=== PATIENT | male | born 1945 | race Caucasian/White ===

== ENCOUNTER 2019-11-20 06:33 | Outpatient (CLI) | payer MEDICARE, BC ==
[2019-11-20 13:32] LABS: INR-International Normal Ratio 1.1; PTT 39.8 SEC (22.9-36.1); Prothrombin Time 14.4 SEC (12.0-14.7)
[2019-11-20 13:33] LABS: Bacteria/HPF Rare-Few HPF (None Seen); Bilirubin Negative (Negative); Blood, Urine Negative (Negative); Clarity Clear (Clear); Glucose, Urine (Dipstick) Normal (Negative); Leukocyte Negative Leu/uL (Negative); Nitrite Negative (Negative); Protein, Urine (Dipstick) Negative (Neg-Trace); RBC/HPF 0-3 HPF (0-3); Squamous Epithelial 0-3 HPF (0-3); Urobilinogen Normal mg/dL (Less than 2); WBC/HPF 0-3 HPF (0-3)
== END 2019-11-20 06:34 | disposition home or self-care (01) ==
LOC: LABBT 06:33
PROVIDERS: ATTEND Urology
DX: Z01.818 Encounter for other preprocedural examination (principal); N52.31 Erectile dysfunction following radical prostatectomy
CPT/HCPCS: 36415; 80048; 81001; 85025; 85610; 85730; 87086; 93005; 93010

== ENCOUNTER 2019-11-29 07:32 | Day surgery (SDC) | payer MEDICARE, BC ==
[2019-11-29] MEDS ORDERED: Levofloxacin 500 mg/D5W 100 ml Premix Bag ONE (10:01)
[2019-11-29] MEDS ORDERED: Neomycin-Polymyxin 1 ML AMP ONE (10:47)
[2019-11-29] MEDS ORDERED: Bacitracin Zinc Ointment 30 gm TUBE ONE ×2 (10:47→10:48)
[2019-11-29] MEDS ORDERED: Fentanyl 100 MCG/2 ML VIAL ONE (10:49)
== END 2019-11-29 10:56 | disposition home or self-care (01) ==
LOC: SDC 07:32
PROVIDERS: ATTEND Urology
DX: N52.31 Erectile dysfunction following radical prostatectomy (principal); Z53.09 Procedure and treatment not carried out because of other contraindication; Z79.01 Long term (current) use of anticoagulants; Z79.1 Long term (current) use of non-steroidal anti-inflammatories (NSAID); Z79.82 Long term (current) use of aspirin; Z79.899 Other long term (current) drug therapy; Z88.0 Allergy status to penicillin
CPT/HCPCS: J1956; J3010

== ENCOUNTER 2020-06-27 07:42 | Outpatient (CLI) | payer MEDICARE, BC, OTHER ==
[2020-06-27 17:03] LABS: SARS-CoV-2 MS2 Positive; SARS-CoV-2 N Gene Negative; SARS-CoV-2 S Gene Negative; SARS-CoV-2 by NAA Not Detected (NotDetected); SARS-CoV-2 orf1ab Negative
== END 2020-06-27 07:43 | disposition home or self-care (01) ==
LOC: LABBT 07:42
PROVIDERS: ATTEND Internal Medicine Gastroenterology
DX: Z20.828 Contact with and (suspected) exposure to other viral communicable diseases (principal)
CPT/HCPCS: 87635; U0003

== ENCOUNTER 2020-07-02 07:56 | Day surgery (SDC) | payer MEDICARE, BC ==
[2020-06-27 13:35] VITALS: BMI 19.8
[2020-07-02] MEDS ORDERED: PROPOFOL 200 MG/20 ML VIAL ONE (10:13)
--- NOTE | 2020-07-02 11:56 | OP ---
DATE OF PROCEDURE: 07/02/2020 PROCEDURE PERFORMED: Colonoscopy. PREMEDICATION: Given by Anesthesiology Department. PREPROCEDURE DIAGNOSIS: History of colon polyps. POSTPROCEDURE DIAGNOSES: 1. Sigmoid diverticulosis coli. 2. Otherwise normal colon exam. PROCEDURE IN DETAIL: Written consents were obtained prior to procedure. After adequate sedation, rectal exam was performed and was normal. The endoscope was advanced to the cecum. The quality of the bowel prep was good. The cecum including the appendiceal orifice and ileocecal valve were visualized and appeared normal. The ascending colon, hepatic flexure, transverse colon, splenic flexure, and descending colon appeared normal. The sigmoid colon was somewhat torturous. Scattered diverticula were noted. The rectal vault appeared normal including retroflexion. No polyp was seen. The patient tolerated the procedure well. ASSESSMENT: 1. Sigmoid diverticulosis coli. 2. Otherwise normal colon exam. RECOMMENDATIONS: 1. Fiber-rich diet. 2. The patient can resume Eliquis. 3. No future surveillance colon exam is indicated. Job ID: [id number]
== END 2020-07-02 11:30 | disposition home or self-care (01) ==
LOC: SDC 07:56
PROVIDERS: ATTEND Internal Medicine Gastroenterology
PROC: 0DJD8ZZ Inspection of Lower Intestinal Tract, Via Natural or Artificial Opening Endoscopic (ICD-10-PCS; principal; 2020-07-02)
DX: Z12.11 Encounter for screening for malignant neoplasm of colon (principal); K57.30 Diverticulosis of large intestine without perforation or abscess without bleeding; I48.91 Unspecified atrial fibrillation; F41.9 Anxiety disorder, unspecified; M19.90 Unspecified osteoarthritis, unspecified site; I25.10 Atherosclerotic heart disease of native coronary artery without angina pectoris; I10 Essential (primary) hypertension; F17.200 Nicotine dependence, unspecified, uncomplicated; Z86.010 Personal history of colon polyps; Z79.01 Long term (current) use of anticoagulants; Z79.1 Long term (current) use of non-steroidal anti-inflammatories (NSAID); Z79.82 Long term (current) use of aspirin; Z79.899 Other long term (current) drug therapy; Z88.0 Allergy status to penicillin; Z95.1 Presence of aortocoronary bypass graft; Z95.810 Presence of automatic (implantable) cardiac defibrillator
CPT/HCPCS: J2704

== ENCOUNTER 2020-09-01 08:03 | Outpatient (CLI) | payer MEDICARE, BC, OTHER ==
[2020-09-01 17:55] LABS: Bilirubin Negative (Negative); Blood, Urine Negative (Negative); Clarity Clear (Clear); Glucose, Urine (Dipstick) Normal (Negative); Ketone, Urine Negative (Negative); Leukocyte 75 Leu/uL (Negative); Nitrite Negative (Negative); Protein, Urine (Dipstick) Negative (Neg-Trace); RBC/HPF 0-3 HPF (0-3); Specific Gravity, Urine 1.005 (1.002-1.036); Squamous Epithelial 0-3 HPF (0-3); Urobilinogen Normal mg/dL (Less than 2)
[2020-09-01 17:56] LABS: Bacteria/HPF 1+ HPF (None Seen)
[2020-09-01 17:57] LABS: Hemoglobin 13.4 g/dL (14.0-18.0); Mean Corpuscular HGB CONC 33.8 g/dL (32.0-36.0); Mean Corpuscular Hemoglobin 34.9 pg (27.0-31.0); Mean Platelet Volume 6.6 fL (7.4-10.4); Platelet Count 150 thou/uL (130-400); RBC Distribution Width 12.1 % (11.5-14.5); Red Blood Cell (RBC) Count 3.82 mill/uL (4.70-6.10); White Blood Cell (WBC) Count 6.2 thou/uL (4.8-10.8)
[2020-09-01 18:00] LABS: INR-International Normal Ratio 1.2; PTT 47.3 sec (22.9-36.1); Prothrombin Time 15.8 sec (12.0-14.7)
[2020-09-01 18:23] LABS: Anion Gap 15 mmol/L (10-20); BUN (Urea Nitrogen) 24 mg/dL (8.4-25.7); Calc. Creatinine Clearance 0 mL/min (70-130); Calcium 9.8 mg/dL (7.8-10.44); Carbon Dioxide 23 mmol/L (23-31); Chloride 102 mmol/L (98-107); Estimated GFR-MDRD 74; Glucose 93 mg/dL (83-110); Sodium 135 mmol/L (136-145)
[2020-09-02 11:06] LABS: SARS-CoV-2 MS2 Positive; SARS-CoV-2 N Gene Negative; SARS-CoV-2 S Gene Negative; SARS-CoV-2 by NAA Not Detected (NotDetected); SARS-CoV-2 orf1ab Negative
== END 2020-09-01 08:04 | disposition home or self-care (01) ==
LOC: LABBT 08:03
PROVIDERS: ATTEND Urology
DX: Z01.818 Encounter for other preprocedural examination (principal); Z20.828 Contact with and (suspected) exposure to other viral communicable diseases; C61 Malignant neoplasm of prostate; N52.31 Erectile dysfunction following radical prostatectomy; N39.3 Stress incontinence (female) (male)
CPT/HCPCS: 80048; 81001; 85027; 85610; 85730; 87086; U0003; 87077; 87186; 87635; 93005; 93010

== ENCOUNTER 2020-09-04 08:08 | Day surgery (SDC) | payer MEDICARE, BC ==
[2020-09-03 11:19] VITALS: BMI 19.8
[2020-09-04] MEDS ORDERED: Vancomycin 1 GM/200 ML BAG ONE (08:36)
[2020-09-04] MEDS ORDERED: Aztreonam 1 GM in Sodium Chloride 0.9% 100 ML IVPB SCH (09:00)
[2020-09-04] MEDS ORDERED: Dexamethasone 20 MG/5 ML VIAL ONE (10:50)
[2020-09-04] MEDS ORDERED: PROPOFOL 200 MG/20 ML VIAL ONE (10:50)
[2020-09-04] MEDS ORDERED: Ondansetron PF 4 MG/2 ML Vial ONE (10:50)
[2020-09-04] MEDS ORDERED: Lidocaine 1% PF 5 ML VIAL ONE (10:50)
[2020-09-04] MEDS ORDERED: Metoclopramide HCl 10 MG/2 ML VIAL ONE (10:50)
[2020-09-04] MEDS ORDERED: PHENYLEPHRINE-NS 100 MCG/ML 10 ML SYRINGE ONE (10:50)
[2020-09-04] MEDS ORDERED: Fentanyl 100 MCG/2 ML VIAL ONE ×4 (11:23→14:51)
[2020-09-04] MEDS ORDERED: Gentamicin 80 MG/2 ML VIAL ONE (11:27)
[2020-09-04] MEDS ORDERED: Sodium Chloride 0.9% 40 ML ONE (11:27)
[2020-09-04] MEDS ORDERED: EPINEPHrine 1 MG/ML AMP ONE (12:33)
[2020-09-04] MEDS ORDERED: Bupivacaine PF 0.5% 30 ML VIAL ONE (12:33)
[2020-09-04] MEDS ORDERED: HYDROcodone/Acetaminophen 5/325 mg Tablet ONE (15:44)
--- NOTE | 2020-09-05 11:25 | OP ---
DATE OF PROCEDURE: 09/04/2020 SERVICE: Urology. PREOPERATIVE DIAGNOSIS: Erectile dysfunction. POSTOPERATIVE DIAGNOSIS: Erectile dysfunction. PROCEDURE PERFORMED: Inflatable penile prosthesis, three-piece prosthesis with 18+2 cylinders and 100 mL of reservoir in the right inguinal space. BRIEF HISTORY: Mr. Richards is a 74-year-old white male with history of fairly severe erectile dysfunction. He has tried multiple modalities including injections and medications, which have been unsuccessful. He elected to proceed forward with a penile prosthesis after discussion of risks and benefits as well as alternative options. DESCRIPTION OF PROCEDURE: After identification of armband and verification of consent, the patient was brought back to the operating room. He underwent general anesthesia with an LMA. He was then left in the supine position and prepped and draped in usual sterile fashion. After appropriate time-out, a lubricated 16-[place] Dobbins catheter was placed with ease down the patient's urethra into the bladder. This was then left off for gravity drainage. A [place] retractor was placed with a hook through the penis at the urethral meatus for penile stretch. An incision was made at the penoscrotal junction using a 15 blade and dissection was carried down with a combination of sharp dissection and Bovie electrocautery until the urethra and corpora could be seen. The hooks for the [place] retractor were then placed in until there was adequate exposure. The corpora and urethra were then cleared away from the remaining scrotal tissues until the entire corpora and urethra could be identified. A space was made in the right space of Retzius using a hemostat and digital dissection to penetrate through the external and internal oblique aponeurosis until the space of Retzius could be identified. 100 mL reservoir was prepped and then placed into the space and then filled up to 105 mL. There was no back pressure and 5 mL was removed from the reservoir to exactly 100 mL. This was then clamped with rubber shod and set off to the side. Stay sutures were then placed on either side of the corpora using a 2-0 Vicryl on CT2 needles to use as stay sutures. An 11 blade was then used to make a corporotomy between either of the stay sutures. Dilation was initially carried out with Metzenbaum scissors down the corpora followed by Hegar dilators both proximally and distally. A second dilator was used to ensure that they were symmetrical on both sides and there was no crossover or clicking sounds. Satisfied with that there was no crossover or urethral injuries and all dilations had occurred in the appropriate space. The corpora were then irrigated out thoroughly with antibiotic irrigation. At this point of the case, the gloves were changed out and the penile prosthesis was prepped. Prior to the cylinders being selected and prepped, measurements were taken using the Megan dilator. This measured approximately 11 cm distally and 9 cm proximally for a distance of approximately 20 cm. We elected to go for an 18+2 cylinder since the majority of the length was in the distal aspect. These cylinders were then prepped and then using the Megan dilator with a Jones needle, the tips were passed through the glans penis and then positioned into place. The rear-tip extenders were placed onto the back of the penile prosthesis and then positioned into place. The horseshoe was used to ensure that the rear-tip extenders were seated properly into the proximal corpora and that the tips of the cylinders were situated into the distal corpora, which sat at about mid glans. The sutures were then clamped shut to simulate tying them down and the penile prosthesis was then hooked up to a 60 mL syringe full of saline. Test inflation was performed, which inflated very nicely with tip sitting at mid glans and extremely straight penis. The cylinders were then deflated completely. The corporotomies were tied down. There was a little bit of a gap on the left side, which required an additional suture, which the horseshoe 2-0 was then used to hold the cylinder out of the way while the needle was passed through the corpora. These were all tied down. A space was then made in the anterior scrotum for the pump. Once this was in good position, a pursestring was made through the opening of the anterior scrotal pouch. The pump was then placed into the anterior scrotal pouch and the pursestring suture tied down. A connection was made between the reservoir and the pump using the quick connect tool. All the tubing was then buried down into the deeper aspect by bringing some of the surrounding tissues over the tubing to ensure the tubing did not stick up. The area was then irrigated again with antibiotic irrigation and then closed in 2 layers with a deeper layer to cover up some of the tubing and then the dartos closed with a running 2-0 Vicryl, taking care not to puncture damage any of the tubing. The skin was closed with a 4-0 Monocryl. Dermabond was then applied and after dried, a Kerlix mummy wrap dressing was applied around the penis. The catheter was left in place and connected to a StatLock on the patient's thigh. The patient was then awakened, taken to PACU for recovery in stable condition. COMPLICATIONS: None. ESTIMATED BLOOD LOSS: Minimal. RETAINED TUBES AND DRAINS: 16-[place] Dobbins catheter. IMPLANTS PLACED: [place] [employer] LGX implant, 18+2 bilateral cylinders with 100 mL of reservoir in the right space of Retzius. SPECIMENS: None. DISPOSITION: The patient will be discharged home. He will come back tomorrow for removal of the mummy wrap to take his catheter out. He was left slightly inflated, which we will deflate tomorrow. He will then continue his recovery at home. Job ID: [id number]
== END 2020-09-04 16:50 | disposition home or self-care (01) ==
LOC: SDC 08:08
PROVIDERS: ATTEND Urology
PROC: 0VUS0JZ Supplement Penis with Synthetic Substitute, Open Approach (ICD-10-PCS; principal; 2020-09-04)
DX: N52.31 Erectile dysfunction following radical prostatectomy (principal); I48.91 Unspecified atrial fibrillation; Z79.01 Long term (current) use of anticoagulants; Z79.82 Long term (current) use of aspirin; Z79.899 Other long term (current) drug therapy; Z88.0 Allergy status to penicillin; Z95.1 Presence of aortocoronary bypass graft; Z95.810 Presence of automatic (implantable) cardiac defibrillator
CPT/HCPCS: 54401; C1813; J0171; J1100; J1580; J2405; J2704; J2765; J3010; J3370; J3490; S0020

== ENCOUNTER 2022-06-17 14:33 | Emergency (ER) | payer MEDICARE, BC ==
[2022-06-17] MEDS ORDERED: Acetaminophen 500 MG TAB ONE (15:09)
== END 2022-06-17 18:02 | disposition home or self-care (01) ==
LOC: ERS 14:33
DX: S09.90XA Unspecified injury of head, initial encounter (principal); S92.512A Displaced fracture of proximal phalanx of left lesser toe(s), initial encounter for closed fracture; I10 Essential (primary) hypertension; F17.210 Nicotine dependence, cigarettes, uncomplicated; W19.XXXA Unspecified fall, initial encounter; M79.672 Pain in left foot; M79.662 Pain in left lower leg
CPT/HCPCS: 70450; 72125

== ENCOUNTER 2022-07-08 11:04 | Outpatient (CLI) | payer MEDICARE, BC | END 2022-07-08 11:05 | disposition home or self-care (01) | LOC: SCSRAD 11:04 | PROVIDERS: ATTEND Family Medicine | DX: M79.641 Pain in right hand (principal); M25.531 Pain in right wrist; M79.89 Other specified soft tissue disorders ==

== ENCOUNTER 2022-08-26 19:48 | Emergency (ER) | payer MEDICARE, BC ==
[~2022-08-26 19:48] MED LIST: Iopamidol 370 76% 100 ML VIAL ONE
[2022-08-26 21:19] LABS: #Eosinphils 0.1 thou/uL (0.0-0.7); #Lymphocytes 1.6 thou/uL (1.20-3.40); #Neutrophils 7.7 thou/uL (1.40-6.50); %Basophils 0.3 % (0.0-1.0); %Eosinophils 0.6 % (0.0-10.0); %Lymphocytes 15.1 % (21.0-51.0); %Monocytes 9.7 % (0.0-10.0); %Neutrophils 74.3 % (42.0-75.0); Hemoglobin 12.1 g/dL (14.0-18.0); Mean Corpuscular HGB CONC 33.3 g/dL (32.0-36.0); Mean Corpuscular Volume 99.2 fL (78.0-98.0); Mean Platelet Volume 6.8 fL (7.4-10.4); Platelet Count 155 thou/uL (130-400); RBC Distribution Width 14.3 % (11.5-14.5); Red Blood Cell (RBC) Count 3.67 mill/uL (4.70-6.10); White Blood Cell (WBC) Count 10.4 thou/uL (4.8-10.8)
[2022-08-26 22:02] LABS: Bilirubin Negative (Negative); Blood, Urine Negative (Negative); Clarity Clear (Clear); Glucose, Urine (Dipstick) Normal (Negative); Ketone, Urine Trace mg/dL (Negative); Leukocyte Negative Leu/uL (Negative); Nitrite Negative (Negative); Protein, Urine (Dipstick) Negative (Neg-Trace); Specific Gravity, Urine 1.015 (1.002-1.036); Urobilinogen Normal mg/dL (Less than 2); pH, Urine 5.5 (5.0-9.0)
[2022-08-26 22:04] LABS: ALT (SGPT) 19 U/L (8-55); AST (SGOT) 24 U/L (5-34); Albumin 3.6 g/dL (3.4-4.8); Alkaline Phosphatase 105 U/L (40-110); Anion Gap 14 mmol/L (10-20); BUN (Urea Nitrogen) 19 mg/dL (8.4-25.7); Bilirubin, Total 0.9 mg/dL (0.2-1.2); CK (CPK) 323 U/L (30-200); CRP (Inflammatory) 13.28 mg/dL (= or < 0.5); Calc. Creatinine Clearance 0 mL/min (70-130); Calcium 9.7 mg/dL (7.8-10.44); Carbon Dioxide 21 mmol/L (23-31); Chloride 107 mmol/L (98-107); Estimated GFR 93; Globulin 3.3 g/dL (2.4-3.5); Glucose 100 mg/dL (83-110); Potassium 3.7 mmol/L (3.5-5.1); Protein, Total 6.9 g/dL (5.8-8.1); Sodium 138 mmol/L (136-145)
[2022-08-26 22:13] LABS: Amphetamine Not Detected (NotDetected); Barbiturates Screen Not Detected (NotDetected); Benzodiazepine Screen Detected (NotDetected); Cocaine Metabolite Screen Not Detected (NotDetected); Methadone Not Detected (NotDetected); Methamphetamine Not Detected (NotDetected); Opiate Screen Not Detected (NotDetected); Oxycodone Screen Not Detected (NotDetected); Phencyclidine (PCP) Not Detected (NotDetected); THC/Cannabinoid Screen Not Detected (NotDetected); Tricyclic Screen Not Detected (NotDetected)
== END 2022-08-26 22:45 | disposition home or self-care (01) ==
LOC: ERS 19:48
DX: M54.6 Pain in thoracic spine (principal); M79.89 Other specified soft tissue disorders; I11.0 Hypertensive heart disease with heart failure; I50.9 Heart failure, unspecified; E78.5 Hyperlipidemia, unspecified; I25.10 Atherosclerotic heart disease of native coronary artery without angina pectoris; F17.210 Nicotine dependence, cigarettes, uncomplicated; Z95.1 Presence of aortocoronary bypass graft; Z79.82 Long term (current) use of aspirin; Z79.01 Long term (current) use of anticoagulants
CPT/HCPCS: 36415; 70450; 71045; 72072; 72125; 80053; 80306; 81003; 82550; 83605; 85025; 85652; 86140; 87040; 87086; 93005

== ENCOUNTER 2023-07-04 15:20 | Outpatient (CLI) | payer MEDICARE, BC ==
[2023-07-04 16:16] LABS: #Eosinphils 0.2 10x3/uL (0.0-0.5); #Monocytes 0.6 10x3/uL (0.0-1.1); #Neutrophils 3.5 10x3/uL (1.5-8.4); %Basophils 0.5 % (0.0-2.0); %Eosinophils 2.6 % (0.0-6.0); %Monocytes 9.5 % (0.0-10.0); %Neutrophils 55.1 % (40.0-75.0); Hematocrit 35.8 % (38.8-50.0); Hemoglobin 11.8 g/dL (13.5-17.5); Mean Corpuscular Hemoglobin 32.2 pg (27.0-33.0); Mean Corpuscular Volume 97.5 fl (81.2-95.1); Mean Platelet Volume 9.2 fl (7.4-10.4); Platelet Count 188 10x3/uL (150-450); RBC Distribution Width 15.9 % (11.5-14.5); Red Blood Cell (RBC) Count 3.67 10x6/uL (4.32-5.72); White Blood Cell (WBC) Count 6.4 10x3/uL (3.5-10.5)
[2023-07-04 16:44] LABS: Anion Gap 15 mmol/L (10-20); BUN (Urea Nitrogen) 21 mg/dL (8.4-25.7); Calc. Creatinine Clearance 0 mL/min (70-130); Calcium 9.7 mg/dL (7.8-10.44); Carbon Dioxide 27 mmol/L (23-31); Chloride 102 mmol/L (98-107); Estimated GFR 68; Glucose 107 mg/dL (83-110); Potassium 4.3 mmol/L (3.5-5.1); Sodium 140 mmol/L (136-145)
== END 2023-07-04 15:21 | disposition home or self-care (01) ==
LOC: LABBT 15:20
PROVIDERS: ATTEND Surgery
DX: Z01.818 Encounter for other preprocedural examination (principal); K40.90 Unilateral inguinal hernia, without obstruction or gangrene, not specified as recurrent
CPT/HCPCS: 80048; 85025; 93005; 93010

== ENCOUNTER 2023-07-06 10:09 | Day surgery (SDC) | payer MEDICARE, BC ==
[2023-07-04 15:42] VITALS: BMI 20.4
[2023-07-06] MEDS ORDERED: Bupivacaine 0.25% HCL 30 ML VIAL ONE (14:50)
[2023-07-06] MEDS ORDERED: EPINEPHrine 1 MG/ML AMP ONE (14:50)
[2023-07-06] MEDS ORDERED: LevoFLOXacin 500 mg/D5W 100 ML BAG ONE (15:08)
[2023-07-06] MEDS ORDERED: fentaNYL PF 100 MCG/2 ML SYRINGE ONE (15:19)
[2023-07-06] MEDS ORDERED: HYDROmorphone 0.5 MG/0.5 ML SYRINGE ONE (15:19)
== END 2023-07-06 16:40 | disposition home or self-care (01) ==
LOC: SDC 10:09
PROVIDERS: ATTEND Surgery
DX: K40.90 Unilateral inguinal hernia, without obstruction or gangrene, not specified as recurrent (principal); I10 Essential (primary) hypertension; E78.00 Pure hypercholesterolemia, unspecified; I48.91 Unspecified atrial fibrillation; F41.9 Anxiety disorder, unspecified; G47.00 Insomnia, unspecified; F17.210 Nicotine dependence, cigarettes, uncomplicated; Z88.0 Allergy status to penicillin; Z79.82 Long term (current) use of aspirin; Z79.01 Long term (current) use of anticoagulants; Z95.0 Presence of cardiac pacemaker; Z53.8 Procedure and treatment not carried out for other reasons
CPT/HCPCS: J0171; J1170; J1956; S0020

== ENCOUNTER 2024-03-29 10:03 | Outpatient (CLI) | payer MEDICARE | END 2024-03-29 10:04 | disposition home or self-care (01) | LOC: ULT 10:03 | PROVIDERS: ATTEND Family Medicine | DX: M54.50 Low back pain, unspecified (principal); G89.29 Other chronic pain; R79.89 Other specified abnormal findings of blood chemistry; M47.816 Spondylosis without myelopathy or radiculopathy, lumbar region; M43.16 Spondylolisthesis, lumbar region; M46.06 Spinal enthesopathy, lumbar region; M25.78 Osteophyte, vertebrae; M89.38 Hypertrophy of bone, other site | CPT/HCPCS: 72100; 76700 ==

== ENCOUNTER 2025-06-06 12:34 | Inpatient (IN) | payer MEDICARE ==
[~2025-06-06 12:34] MED LIST changes: -Iopamidol 370 76% 100 ML VIAL ONE; +Iopamidol-370 76% 500 ML MDV (1 ML CHARGE) ONE
[2025-06-06 13:41] LABS: #Basophils 0.03 10x3/uL (0.0-0.2); #Eosinophils 0.18 10x3/uL (0.0-0.7); #Monocytes 0.82 10x3/uL (0.11-0.59); #Neutrophils 3.81 10x3/uL (1.40-6.50); %Basophils 0.4 % (0.0-1.0); %Eosinophils 2.6 % (0.0-10.0); %Lymphocytes 30.0 % (21.0-51.0); %Monocytes 11.8 % (0.0-10.0); %Neutrophils 54.6 % (42.0-75.0); Hematocrit 30.1 % (42.0-52.0); Hemoglobin 10.1 g/dL (14.0-18.0); Mean Corpuscular Hemoglobin 30.8 pg (27.0-31.0); Mean Corpuscular Volume 91.8 fL (78.0-98.0); Platelet Count 168 10x3/uL (130-400); Red Blood Cell (RBC) Count 3.28 mill/uL (4.70-6.10); White Blood Cell (WBC) Count 6.97 10x3/uL (4.8-10.8)
[2025-06-06 14:02] LABS: ALT (SGPT) 31 U/L (Less than 45); AST (SGOT) 37 U/L (11-34); Albumin 2.8 g/dL (3.1-4.5); Alkaline Phosphatase 95 U/L (40-110); Anion Gap 12 mmol/L (10-20); BUN (Urea Nitrogen) 47 mg/dL (8.4-25.7); Bilirubin, Total 0.5 mg/dL (0.3-1.2); Calc. Creatinine Clearance 0 mL/min (70-130); Calcium 8.5 mg/dL (7.8-10.44); Carbon Dioxide 27 mmol/L (23-31); Chloride 99 mmol/L (98-107); Globulin 3.5 g/dL (2.4-3.5); Glucose 105 mg/dL (83-110); Magnesium 2.7 mg/dL (1.6-2.6); Potassium 3.7 mmol/L (3.5-5.1); Sodium 134 mmol/L (136-145)
[2025-06-06 14:04] LABS: Troponin I 0.083 ng/mL (< 0.028)
[2025-06-06] MEDS ORDERED: Furosemide 40 MG (4 mL) VIAL ONE (16:30)
[2025-06-06 16:55] LABS: Troponin I 0.079 ng/mL (< 0.028)
[2025-06-06] MEDS ORDERED: Senokot S 8.6-50 MG TAB PO PRN (17:34)
[2025-06-06] MEDS ORDERED: Acetaminophen 325 MG TAB PO PRN (17:34)
[2025-06-06] MEDS: Famotidine 20 MG TAB PO SCH (20:32)
[2025-06-06] MEDS: Sacubitril 24MG/Valsartan 26 MG TAB PO SCH (20:32)
[2025-06-06] MEDS: Apixaban 5 MG TAB PO SCH (20:32)
[2025-06-06 21:06] LABS: Troponin I 0.087 ng/mL (< 0.028)
[2025-06-06 22:08] VITALS: BMI 22.1
[2025-06-07 01:09] LABS: Troponin I 0.085 ng/mL (< 0.028)
[2025-06-07 04:49] LABS: #Basophils Less than 0.03 10x3/uL (0.0-0.2); #Eosinophils 0.13 10x3/uL (0.0-0.7); #Monocytes 0.89 10x3/uL (0.11-0.59); #Neutrophils 4.54 10x3/uL (1.40-6.50); %Basophils 0.3 % (0.0-1.0); %Eosinophils 1.8 % (0.0-10.0); %Lymphocytes 22.6 % (21.0-51.0); %Monocytes 12.2 % (0.0-10.0); %Neutrophils 62.4 % (42.0-75.0); Hematocrit 32.2 % (42.0-52.0); Hemoglobin 10.6 g/dL (14.0-18.0); Mean Corpuscular Hemoglobin 30.9 pg (27.0-31.0); Mean Corpuscular Volume 93.9 fL (78.0-98.0); Platelet Count 208 10x3/uL (130-400); Red Blood Cell (RBC) Count 3.43 mill/uL (4.70-6.10); White Blood Cell (WBC) Count 7.27 10x3/uL (4.8-10.8)
[2025-06-07] MEDS: Albumin 25% 25 GM (100 mL) BOT IVPB SCH (05:01)
[2025-06-07] MEDS: Furosemide 40 MG (4 mL) VIAL SLOW IVP SCH (05:01)
[2025-06-07 05:17] LABS: Anion Gap 13 mmol/L (10-20); BUN (Urea Nitrogen) 39 mg/dL (8.4-25.7); Calc. Creatinine Clearance 51 mL/min (70-130); Calcium 8.7 mg/dL (7.8-10.44); Carbon Dioxide 29 mmol/L (23-31); Chloride 103 mmol/L (98-107); Glucose 105 mg/dL (83-110); Potassium 3.9 mmol/L (3.5-5.1); Sodium 141 mmol/L (136-145)
[2025-06-07] MEDS: Ezetimibe 10 MG TAB PO SCH (08:52)
[2025-06-07] MEDS: Carvedilol 25 MG TAB PO SCH (08:52)
[2025-06-07] MEDS: Aspirin 81 mg Enteric Coated Tablet PO SCH (08:52)
[2025-06-07] MEDS ORDERED: Enoxaparin 40 MG (0.4 mL) SYRINGE SC SCH (09:00)
[2025-06-07 12:40] VITALS: BMI 22.1
[2025-06-08 05:22] LABS: #Basophils Less than 0.03 10x3/uL (0.0-0.2); #Eosinophils 0.19 10x3/uL (0.0-0.7); #Monocytes 1.02 10x3/uL (0.11-0.59); #Neutrophils 3.57 10x3/uL (1.40-6.50); %Basophils 0.1 % (0.0-1.0); %Eosinophils 2.7 % (0.0-10.0); %Lymphocytes 31.3 % (21.0-51.0); %Monocytes 14.4 % (0.0-10.0); %Neutrophils 50.7 % (42.0-75.0); Hematocrit 30.6 % (42.0-52.0); Hemoglobin 10.1 g/dL (14.0-18.0); Mean Corpuscular Hemoglobin 30.6 pg (27.0-31.0); Mean Corpuscular Volume 92.7 fL (78.0-98.0); Platelet Count 223 10x3/uL (130-400); Red Blood Cell (RBC) Count 3.30 mill/uL (4.70-6.10); White Blood Cell (WBC) Count 7.06 10x3/uL (4.8-10.8)
[2025-06-08 05:40] LABS: Anion Gap 15 mmol/L (10-20); BUN (Urea Nitrogen) 34 mg/dL (8.4-25.7); Calc. Creatinine Clearance 49 mL/min (70-130); Calcium 8.5 mg/dL (7.8-10.44); Carbon Dioxide 29 mmol/L (23-31); Chloride 104 mmol/L (98-107); Glucose 112 mg/dL (83-110); Potassium 3.6 mmol/L (3.5-5.1); Sodium 144 mmol/L (136-145)
[2025-06-08 12:42] VITALS: BP 107/59; TEMP 97.9
== END 2025-06-08 14:02 | disposition home health service (06) | DRG 291 ==
LOC: ERS 12:34 → 2NO 17:38
PROVIDERS: ADMIT Hospitalist; ATTEND Family Medicine
PROC: 30233J1 Transfusion of Nonautologous Serum Albumin into Peripheral Vein, Percutaneous Approach (ICD-10-PCS; principal; 2025-06-07)
DX: I11.0 Hypertensive heart disease with heart failure (principal); G93.41 Metabolic encephalopathy; I50.23 Acute on chronic systolic (congestive) heart failure; N17.9 Acute kidney failure, unspecified; I25.10 Atherosclerotic heart disease of native coronary artery without angina pectoris; I27.20 Pulmonary hypertension, unspecified; I48.91 Unspecified atrial fibrillation; J44.9 Chronic obstructive pulmonary disease, unspecified; F32.A Depression, unspecified; F41.9 Anxiety disorder, unspecified; Z60.2 Problems related to living alone; Z95.1 Presence of aortocoronary bypass graft; Z95.810 Presence of automatic (implantable) cardiac defibrillator; Z98.890 Other specified postprocedural states; Z88.0 Allergy status to penicillin; I5A Non-ischemic myocardial injury (non-traumatic); Z79.82 Long term (current) use of aspirin; Z79.899 Other long term (current) drug therapy; F17.210 Nicotine dependence, cigarettes, uncomplicated; E78.5 Hyperlipidemia, unspecified; Z90.79 Acquired absence of other genital organ(s); I08.3 Combined rheumatic disorders of mitral, aortic and tricuspid valves; I37.1 Nonrheumatic pulmonary valve insufficiency; Z85.46 Personal history of malignant neoplasm of prostate; T39.395A Adverse effect of other nonsteroidal anti-inflammatory drugs [NSAID], initial encounter
CPT/HCPCS: 36415; 71045; 71260; 80048; 80053; 83735; 83880; 84484; 85025; 93005; 93970; 96374; J1940; P9047; Q9967

== ENCOUNTER 2025-08-12 11:00 | Inpatient (IN) | payer MEDICARE ==
[2025-08-12 11:40] VITALS: BMI 22.4
[2025-08-12 12:24] LABS: #Basophils 0.04 10x3/uL (0.0-0.2); #Eosinophils 0.22 10x3/uL (0.0-0.7); #Monocytes 1.09 10x3/uL (0.11-0.59); #Neutrophils 4.00 10x3/uL (1.40-6.50); %Basophils 0.5 % (0.0-1.0); %Eosinophils 2.9 % (0.0-10.0); %Lymphocytes 30.1 % (21.0-51.0); %Monocytes 14.1 % (0.0-10.0); %Neutrophils 51.9 % (42.0-75.0); Hematocrit 36.5 % (42.0-52.0); Hemoglobin 11.5 g/dL (14.0-18.0); Mean Corpuscular Hemoglobin 29.3 pg (27.0-31.0); Mean Corpuscular Volume 92.9 fL (78.0-98.0); Platelet Count 190 10x3/uL (130-400); Red Blood Cell (RBC) Count 3.93 mill/uL (4.70-6.10); White Blood Cell (WBC) Count 7.71 10x3/uL (4.8-10.8)
[2025-08-12 12:37] LABS: INR-International Normal Ratio 1.2; Prothrombin Time 15.5 sec (12.0-14.7)
[2025-08-12 12:39] LABS: PTT 54.7 sec (22.9-36.1)
[2025-08-12 12:53] LABS: ALT (SGPT) 12 U/L (Less than 45); AST (SGOT) 23 U/L (11-34); Albumin 3.5 g/dL (3.1-4.5); Alkaline Phosphatase 138 U/L (40-110); Anion Gap 17 mmol/L (10-20); BUN (Urea Nitrogen) 17 mg/dL (8.4-25.7); Bilirubin, Total 0.7 mg/dL (0.3-1.2); Calc. Creatinine Clearance 0 mL/min (70-130); Calcium 9.7 mg/dL (7.8-10.44); Carbon Dioxide 23 mmol/L (23-31); Chloride 105 mmol/L (98-107); Globulin 3.6 g/dL (2.4-3.5); Glucose 91 mg/dL (83-110); Potassium 4.4 mmol/L (3.5-5.1); Sodium 141 mmol/L (136-145)
[2025-08-13] MEDS ORDERED: Heparin 10,000 UNITS/ 10 ML VIAL ONE (08:45)
[2025-08-13] MEDS ORDERED: Vancomycin 1 GM/200 ML (FROZEN) BAG ONE (08:49)
[2025-08-13] MEDS ORDERED: Iopamidol 370 76% 100 ML VIAL ONE (09:58)
[2025-08-13] MEDS ORDERED: SUGAMMADEX SODIUM 200 MG/2 ML VIAL ONE (10:21)
[2025-08-13] MEDS ORDERED: Rocuronium Bromide 10 MG/ML (10ML VIAL) ONE (10:28)
[2025-08-13] MEDS ORDERED: Etomidate 40 MG (20 mL) VIAL ONE (10:28)
[2025-08-13] MEDS ORDERED: Lidocaine 1% PF 5 ML VIAL ONE (10:28)
[2025-08-13] MEDS ORDERED: PROPOFOL 200 MG/20 ML VIAL ONE (10:28)
[2025-08-13] MEDS ORDERED: Ondansetron PF 4 MG/2 ML Vial ONE (10:28)
== END 2025-08-13 16:00 | disposition home or self-care (01) | DRG 274 ==
LOC: SURG A 08-13 06:52
PROVIDERS: ADMIT Internal Medicine Cardiovascular Disease; ATTEND Internal Medicine Cardiovascular Disease
PROC: 02L73DK Occlusion of Left Atrial Appendage with Intraluminal Device, Percutaneous Approach (ICD-10-PCS; principal; 2025-08-13)
DX: I48.0 Paroxysmal atrial fibrillation (principal); Z00.6 Encounter for examination for normal comparison and control in clinical research program; I10 Essential (primary) hypertension; E78.5 Hyperlipidemia, unspecified; F17.210 Nicotine dependence, cigarettes, uncomplicated; I25.10 Atherosclerotic heart disease of native coronary artery without angina pectoris; Z95.0 Presence of cardiac pacemaker; Z79.899 Other long term (current) drug therapy; Z88.0 Allergy status to penicillin
CPT/HCPCS: 33340; 80053; 85025; 85347; 85610; 85730; 86850; 86900; 86901; 93306; 93312; C1753; C1760; C1817; C1893; C1894; J1100; J1644; J2704; J2720; J3373; Q9967

== ENCOUNTER 2025-08-12 11:03 | Outpatient (CLI) | payer MEDICARE | END 2025-08-12 11:04 | disposition home or self-care (01) | LOC: LABBT 11:03 | PROVIDERS: ATTEND Internal Medicine Cardiovascular Disease | DX: Z01.810 Encounter for preprocedural cardiovascular examination (principal); I48.0 Paroxysmal atrial fibrillation; R04.0 Epistaxis | CPT/HCPCS: 93005; 93010 ==

== ENCOUNTER 2025-09-03 09:30 | Outpatient (CLI) | payer MEDICARE | END 2025-09-03 09:31 | disposition home or self-care (01) | LOC: RAD 09:30 | PROVIDERS: ATTEND Internal Medicine | DX: R06.00 Dyspnea, unspecified (principal); I51.7 Cardiomegaly | CPT/HCPCS: 71046 ==

== ENCOUNTER 2025-09-27 12:52 | Outpatient (CLI) | payer MEDICARE ==
[2025-09-27 13:45] LABS: #Basophils 0.04 10x3/uL (0.0-0.2); #Eosinophils 0.17 10x3/uL (0.0-0.7); #Monocytes 0.73 10x3/uL (0.11-0.59); #Neutrophils 3.71 10x3/uL (1.40-6.50); %Basophils 0.6 % (0.0-1.0); %Eosinophils 2.6 % (0.0-10.0); %Lymphocytes 29.2 % (21.0-51.0); %Monocytes 11.1 % (0.0-10.0); %Neutrophils 56.2 % (42.0-75.0); Hematocrit 33.2 % (42.0-52.0); Hemoglobin 10.6 g/dL (14.0-18.0); Mean Corpuscular Hemoglobin 28.6 pg (27.0-31.0); Mean Corpuscular Volume 89.5 fL (78.0-98.0); Platelet Count 188 10x3/uL (130-400); Red Blood Cell (RBC) Count 3.71 mill/uL (4.70-6.10); White Blood Cell (WBC) Count 6.60 10x3/uL (4.8-10.8)
[2025-09-27 14:01] LABS: Anion Gap 13 mmol/L (10-20); BUN (Urea Nitrogen) 21 mg/dL (8.4-25.7); Calc. Creatinine Clearance 0 mL/min (70-130); Calcium 9.1 mg/dL (7.8-10.44); Carbon Dioxide 25 mmol/L (23-31); Chloride 107 mmol/L (98-107); Glucose 97 mg/dL (83-110); Potassium 4.1 mmol/L (3.5-5.1); Sodium 141 mmol/L (136-145)
[2025-09-27 14:05] LABS: INR-International Normal Ratio 1.2; Prothrombin Time 14.9 sec (12.0-14.7)
[2025-09-27 14:06] LABS: PTT 46.0 sec (22.9-36.1)
== END 2025-09-27 12:53 | disposition home or self-care (01) ==
LOC: LABBT 12:52
PROVIDERS: ATTEND Internal Medicine Cardiovascular Disease
DX: Z01.812 Encounter for preprocedural laboratory examination (principal); Z51.81 Encounter for therapeutic drug level monitoring; I48.0 Paroxysmal atrial fibrillation; R04.0 Epistaxis; Z79.899 Other long term (current) drug therapy
CPT/HCPCS: 80048; 85025; 85610; 85730

== ENCOUNTER 2025-10-01 05:57 | Day surgery (SDC) | payer MEDICARE ==
[2025-09-27 13:11] VITALS: BMI 22.4
== END 2025-10-01 09:02 | disposition home or self-care (01) ==
LOC: SDC 05:57
PROVIDERS: ATTEND Internal Medicine Cardiovascular Disease
PROC: B245ZZ4 Ultrasonography of Left Heart, Transesophageal (ICD-10-PCS; principal; 2025-10-01)
DX: I48.0 Paroxysmal atrial fibrillation (principal); I25.810 Atherosclerosis of coronary artery bypass graft(s) without angina pectoris; Z88.0 Allergy status to penicillin
CPT/HCPCS: 93312